=== PATIENT | female | born 1950 | race Caucasian/White ===

== ENCOUNTER 2021-04-21 11:27 | Inpatient (IN) | payer MEDICARE ==
[~2021-04-21] VITALS: Ht 167.6 cm; Wt 83.0 kg
[2021-04-28] VITALS (8 sets, daily range): BP systolic 103–142; BP diastolic 57–84; PULSE 61–72; TEMP 97.9–99
[2021-04-28] MEDS ORDERED: PRINZIDE 12.5 M1 TAB PO (09:33)
[2021-04-28] MEDS ORDERED: POTASSIUM (09:33)
[2021-04-28] MEDS ORDERED: OSCAL 500 TAB500 MG PO (09:34)
[2021-04-28] MEDS ORDERED: NATURAL E400 IU PO (09:34)
[2021-04-28] MEDS ORDERED: MAGNESIUM250 M1 (09:34)
[2021-04-28] MEDS ORDERED: VITAMIN B COMPL1 SGL PO (09:35)
[2021-04-28] MEDS ORDERED: THE MEDICINE S200 M2 PO (09:35)
[2021-04-28] MEDS ORDERED: VITAMIN D250 MCG (09:35)
[2021-04-28] MEDS ORDERED: KRILL OIL 5001 EACH (09:35)
--- NOTE | 2021-04-28 15:59 | NUR ---
1600 SITTING ON EDGE OF BED. IVF HEPLOCKED. PATIENT UP AMBULATE IN HALLS. VAG PACKING AND RADER STAYS IN UNTIL MORNING
--- NOTE | 2021-04-28 21:00 | NUR ---
CPAP set up for pt. Pt states "I'll probably go to bed soon" Discussed with pt that vitals and Motrin are due aroung Midnight. Pt states " absolutely wake me up, no problem"
[2021-04-29 00:15] VITALS: BP 117/62; PULSE 56; TEMP 98.8
[2021-04-29 05:15] VITALS: BP 131/59; PULSE 62; TEMP 98.8
--- NOTE | 2021-04-29 05:25 | NUR ---
Vag pack removed without difficulty or resistance. Up to bathroom with steady gait, burger catheter dc'd. approximately 3-4 tablespoons bright red vaginal bleeding noted, peripad, clean panties on and back to bed.
[2021-04-29 08:20] VITALS: BP 122/58; PULSE 76; TEMP 98.4
[2021-04-29] MEDS ORDERED: ROXICODONE 55 MG/TAB PO (09:10)
[2021-04-29] MEDS ORDERED: IBU600 MG PO (09:10)
--- NOTE | 2021-04-29 09:28 | NUR ---
0930 PATIENT UP TO BATHROOM. VOIDS 400 CC WITH MINIMAL BLEEDING AT THIS TIME. PATIENT BACK TO BED AND BLADDER SCAN AT THIS TIME FOR 2 CC
--- NOTE | 2021-04-29 10:03 | NUR ---
Initial visit; Patient thanked [employer] Specialist for offering prayer for healing and God's blessings.
--- NOTE | 2021-04-29 11:42 | NUR ---
1115 PATIENT UP TO BATHROOM, SCANT BLEEDING NOTED TO PAD AND IN TOILET. VOIDS 500 CC AND BLADDER SCANNED FOR 16CC. PATIENT DRESSED SELF. 1130 ALL DISCHARGE INSTRUCTIONS GIVEN TO PATIENT AND DAUGHETER. VERBAL UNDERSTANDING NOTED. DENIES NEEDS. 1140 DISMISSED TO POV VIA WHEELCHAIR.
== END 2021-04-29 11:40 | disposition home or self-care (01) | DRG 743 ==
LOC: INPTSU 04-28 09:02 → SURG 04-28 11:00 → OB 04-28 13:30
PROVIDERS: ADMIT Obstetrics & Gynecology
PROC: 0UT98ZZ Resection of Uterus, Via Natural or Artificial Opening Endoscopic (ICD-10-PCS; principal; 2021-04-28 11:00)
PROC: 0UT28ZZ Resection of Bilateral Ovaries, Via Natural or Artificial Opening Endoscopic (ICD-10-PCS; 2021-04-28 11:00)
PROC: 0USG4ZZ Reposition Vagina, Percutaneous Endoscopic Approach (ICD-10-PCS; 2021-04-28 11:00)
PROC: 0JQC3ZZ Repair Pelvic Region Subcutaneous Tissue and Fascia, Percutaneous Approach (ICD-10-PCS; 2021-04-28 11:00)
DX: N81.4 Uterovaginal prolapse, unspecified (principal); N81.6 Rectocele
CPT/HCPCS: C2631; J0690; J1100; J1885; J2405; J2704; J2710; J3010; J7120